=== PATIENT | male | born 1965 | race Caucasian/White ===

== ENCOUNTER 2020-03-04 13:55 | Inpatient (IN) | payer MEDICAID, SELFPAY ==
[2020-03-04 13:56] VITALS: BP 158/115; PULSE 98; RESP 22; TEMP 36.3; O2SAT 100; BMI 22.7
[2020-03-04] MEDS: Phenobarbital 32.4 MG Tablet PO (14:47)
[2020-03-04 14:49] VITALS: BP 136/62; PULSE 86; RESP 22; O2SAT 100
--- NOTE | 2020-03-04 14:52 | ED.DCSUM_ITS ---
- ER Visit Summary Date of Service: 03/04/20 Chief Complaint: Alcohol detox History of Present Illness: The patient is a 55 M who presents requesting alcohol detox. Patient states he drinks approximately half a gallon of vodka per day. Patient states his last drink was approximately 3 hours ago. Patient states he has been through detox in the past and his last detox was 3 years ago. Patient denies any drug use. Patient denies any suicidal or homicidal ideations. Patient admits to nausea but denies any vomiting or diarrhea. Patient denies any seizures but admits to some chills and shaking. Physical Examination: Vital signs are stable. Patient is afebrile. Patient is in no acute distress. Oral mucosa is pink and moist. Neck is supple. Trachea is midline. There is no JVD. Heart was regular rate and rhythm. Lungs are clear and equal bilaterally. Abdomen is soft. Bowel sounds are normal. There is no tenderness. Cranial nerves II through XII are grossly intact. There are no focal motor or sensory deficits. Extremities are intact. There is no calf tenderness or edema. Test Results: CBC and comprehensive metabolic profile were obtained. Serum alcohol level was obtained. Urine tox screen was obtained. Emergency Department Course and Treatment: Patient was given oral phenobarbital here. Patient was also given a nicotine patch. Case was discussed with the hospitalist. He will admit the patient to his service. Patient understood and was agreeable with the plan. All questions were answered. Disposition: Admit to hospital Impression: 1. Alcohol dependence This note was generated with [employer] dictation software. It may contain incorrect words, spelling, and punctuation that were not noted in review of the chart prior to signing ED Disposition - Plan for ED Patient: Disposition: Acute Care Hospital [facility] Diagnosis: Alcohol dependence Referrals: NOT,DEFINED [NON-STAFF] -
[2020-03-04 15:06] LABS: Absolute Lymphocyte Count 2.23 X10^3/uL (0.83-4.51); Basophil# 0.06 X10^3/uL; Eosinophil# 0.01 X10^3/uL; Eosinophils% 0.2 % (0-5); Hematocrit 46.6 % (40-54); Hemoglobin 15.6 g/dL (13.0-16.5); Lymphocyte # 2.23 X10^3/ul (4.0); Lymphocyte % 38.5 % (19-41); Mean Corp Hgb Conc 33.5 g/dL (32-36); Mean Corpuscular Hgb 29.9 pg (27.0-32.0); Mean Corpuscular Volume 89.4 fL (80-94); Mean Platelet Vol. 9.7 fl (6.2-12.0); Monocyte# 0.48 X10^3/uL; Monocyte% 8.3 % (0-10); NRBC Flagged by Analyzer 0 % (0-5); Neutrophil % 51.8 % (47-70); Platelet Count 233 K/mm3 (150-450); RBC Distribution Width CV 14.1 % (11.6-14.6); RBC Distribution Width SD 45.9 fl (35.1-43.9); Red Blood Count 5.21 M/mm3 (4.6-6.2); White Blood Count 5.8 K/mm3 (4.4-11.0)
[2020-03-04 15:08] LABS: Amphetamine Urine VISTA NEGATIVE (<1000 ng/mL); Barbiturate Urine VISTA NEGATIVE (< 200 ng/mL); Benzodiazepine Urine VISTA NEGATIVE (< 200 ng/mL); Cocaine Urine VISTA NEGATIVE (< 300 ng/mL); Ecstacy Urine VISTA NEGATIVE (< 500 ng/mL); Methadone Urine VISTA NEGATIVE (< 300 ng/mL); PCP Urine VISTA NEGATIVE (< 25 ng/mL); THC Urine VISTA NEGATIVE (< 50 ng/mL); Vista UDS pH Range 5
[2020-03-04 15:17] LABS: International Normalized Ratio 0.9; Prothrombin Time (Protime)PT. 11.5 SECONDS (11.7-14.9)
[2020-03-04 15:21] LABS: ALB/GLOB Ratio 1.2 RATIO (0.9-2.4); AST(SGOT) 51 U/L (15-37); Alanine Aminotransfer ALT/SGPT 91 U/L (16-61); Albumin, Serum 4.4 g/dL (3.2-5.0); Alkaline Phosphatase 105 U/L (45-117); Anion Gap 19 (5-15); BUN 16 mg/dL (7-18); BUN/Creat Ratio 16.3 RATIO (10-20); Calcium,Total 9.1 mg/dL (8.5-10.1); Chloride 101 mmol/L (98-107); Creatinine, Serum 0.98 mg/dL (0.70-1.30); EST Glomerular Filtration Rate 84 mL/min (>60); Est Glom Filt Rate - Afr Amer 102 mL/min (>60); Estimated Creatinine Clearance 80.16 ml/min; Globulin 3.8 g/dL (2.2-4.2); Glucose 72 mg/dL (74-106); Lipase 95 U/L (73-393); Potassium 3.9 mmol/L (3.5-5.1); Protein, Total 8.2 g/dL (6.4-8.2); Sodium Level 138 mmol/L (136-145)
[2020-03-04 15:25] LABS: Lactic Acid 7.1 mmol/L (0.4-1.9)
[2020-03-04] MEDS: 0.9% Normal Saline 1,000 ML 1000 ML IV (15:48)
[2020-03-04 15:49] VITALS: BP 130/81; PULSE 87; RESP 17; TEMP 36.6; O2SAT 96
[2020-03-04 16:12] VITALS: BMI 22.7
[2020-03-04 16:14] VITALS: BP 134/87; PULSE 93; RESP 18; TEMP 36.8; O2SAT 100
[2020-03-04] MEDS: Phenobarbital 32.4 MG Tablet 64.8 MG PO ×2 (17:15→21:53)
[2020-03-04] MEDS: Ondansetron 8 MG Tablet PO (17:53)
--- NOTE | 2020-03-04 18:38 | HP.PCM_ITS ---
History of Present Illness Date of Admission: 03/04/20 Chief Complaint: Alcohol detox The patient is a 55 year old M as below who presents requesting alcohol detox. He drinks approximately half a gallon of vodka per day and his last drink was about 3 hours prior. He has gone through detox before approximately 3 years ago and denies any other type of drug use. He does have some nausea and when he arrived to the floor he started having significant emesis. He does acknowledge anxiety and he does not take anything for it. When he presents to the ER he is a lactic acid of 7.1 and was given IV fluids. He does not have any signs of infection on his lab work however he is extremely acidotic secondary to the lactic acidosis Past Medical History Allergies Penicillins Allergy (Verified 03/04/20 14:25) Anaphylaxis Home Medications: Ambulatory Orders Medication Instructions Recorded NK 03/04/20 Surgical History: no surgical history Smoking Status: Current every day smoker Tobacco Use: Cigars Alcohol: Heavy Drugs: None - *Family History Maternal History Items: Stroke Paternal History Items: No pertinent history Review of Systems Constitutional: Denies: Chills, Fever, Weight Change HEENT: Denies: Head Aches, Sinus Congestion, Sinus Drainage Cardiovascular: Reports: Chest Pressure. Denies: Chest Pain, Palpitations Respiratory: Denies: Cough, Shortness of breath at rest, Sputum production Gastrointestinal: Reports: Nausea, Vomiting. Denies: Abdominal Pain Genitourinary: Denies: Dysuria Musculoskeletal: Denies: Joint Pain, Joint Tenderness Skin: Denies: Rash, Wounds Neurological: Denies: Numbness, Tingling, Focal weakness Psychiatric: Reports: Anxiety. Denies: Depression Hematologic/ Lymphatic: Denies: Easy Bruising, Easy Bleeding VTE Information - Inpt Only VTE Present on Admission: No Patient Problems: Active and Suspected Problems Alcohol dependence (Acute) - Physical Exam Vitals/I&O's: Vital Signs Temp Pulse Resp BP Pulse Ox 98.3 F 93 18 134/87 H 100 03/04/20 16:14 03/04/20 16:14 03/04/20 16:14 03/04/20 16:14 03/04/20 16:14 Oxygen Delivery Method Room Air Weight: 145 lb Body Mass Index (BMI) 22.7 Intake and Output for Last 24 Hours 03/02/20 03/03/20 03/04/20 23:59 23:59 23:59 Intake Total 1420 / 1420 Output Total 300 / 300 Balance 1120 / 1120 General: Alert, Oriented x3, Cooperative, - - Appears uncomfortable HEENT: Atraumatic, PERRLA, EOMI, Normocephalic Oral: Dry Mucosa Neck: Supple, No JVD Lungs: Clear to auscultation, Normal air movement, No rhonchi, No wheeze, No rales Cardiovascular: Regular rate, Regular Rhythm, Normal S1, Normal S2, No murmurs Abdomen: Soft, Non Tender, Non-Distended, No Hepato-splenomegaly Extremities: No edema, Capillary Refill Less than 3 Seconds Skin: No rashes, No breakdown Neurological: Neuro grossly intact, Sensory exam intact to light touch and pain Psych/Mental Status: Anxious, Restless Laboratory Results 03/04/20 14:35: Urine Opiates Screen NEGATIVE, Urine Methadone Screen NEGATIVE, Ur Barbiturates Screen NEGATIVE, Ur Phencyclidine Scrn NEGATIVE, Ur Amphetamines Screen NEGATIVE, U Methamphetamin-MDMA NEGATIVE, U Benzodiazepines Scrn NEGATIVE, Urine Cocaine Screen NEGATIVE, U Cannabinoids Screen NEGATIVE, Ur Drug Screen Comment 03/04/20 14:50: WBC 5.8, RBC 5.21, Hgb 15.6, Hct 46.6, MCV 89.4, MCH 29.9, MCHC 33.5, RDW Std Deviation 45.9 H, RDW Coeff of Елена 14.1, Plt Count 233, MPV 9.7, Immature Gran % (Auto) 0.200, Neut % (Auto) 51.8, Lymph % (Auto) 38.5, [place] % (Auto) 8.3, Eos % (Auto) 0.2, Baso % (Auto) 1.0, Absolute Neuts (auto) 3.0, Absolute Lymphs (auto) 2.23, Nucleated RBC % 0 03/04/20 14:50: PT 11.5 L, INR 0.9 03/04/20 14:50: Sodium 138, Potassium 3.9, Chloride 101, Carbon Dioxide 18.0 L, Anion Gap 19 H, BUN 16, Creatinine 0.98, Estim Creat Clear Calc 80.16, Est GFR (MDRD) Af Amer 102, Est GFR (MDRD) Non-Af 84, BUN/Creatinine Ratio 16.3, Glucose 72 L, Calcium 9.1, Total Bilirubin 0.70, AST 51 H, ALT 91 H, Alkaline Phosphatase 105, Total Protein 8.2, Albumin 4.4, Globulin 3.8, Albumin/Globulin Ratio 1.2, Lipase 95 03/04/20 14:50: Ethyl Alcohol 258.0 03/04/20 14:50: Lactic Acid 7.1 H* Current Medications Dicyclomine HCl (Dicyclomine 10 Mg Capsule) 20 mg PO Q6H PRN PRN PRN Reason: abdominal discomfort Folic Acid (Folic Acid 1 Mg Tablet) 1 mg PO DAILY@0800 AARTI Gabapentin (Gabapentin 300 Mg Capsule) 300 mg PO Q8H PRN PRN PRN Reason: moderate to severe anxiety Hydroxyzine Pamoate (Hydroxyzine Theresa 25 Mg Capsule) 50 mg PO Q4H PRN PRN PRN Reason: mild anxiety Sodium Chloride () 1,000 mls @ 100 mls/hr IV .Q10H AARTI Stop: 03/05/20 04:34 Loperamide HCl (Loperamide 2 Mg Capsule) 2 mg PO Q4H PRN PRN PRN Reason: LOOSE STOOLS Nicotine (Nicotine 21 Mg Patch) 21 mg TRANSDERM. DAILY AARTI Ondansetron HCl (Ondansetron 8 Mg Tablet) 8 mg PO Q8H PRN PRN PRN Reason: NAUSEA Last Admin: 03/04/20 17:53 Dose: 8 mg Documented by: Ondansetron HCl (Ondansetron 4 Mg/2 Ml Vial) 4 mg IV X1 ONE Stop: 03/04/20 18:33 Phenobarbital (Phenobarbital 32.4 Mg Tablet) 97.2 mg PO Q4H AARTI; Taper Stop: 03/09/20 00:59 Last Admin: 03/04/20 17:15 Dose: 97.2 mg Documented by: Sodium Chloride (0.9% Saline Lock 10 Ml Syringe) 10 - 40 ml IV UD PRN PRN Reason: SALINE FLUSH Thiamine HCl (Thiamine Hydrochloride 100 Mg Tablet) 100 mg PO DAILYCM AARTI Trazodone HCl (Trazodone 100 Mg Tablet) 100 mg PO QHS PRN PRN Reason: INSOMNIA Assessment/Plan All Active Problems Alcohol dependence (Acute) 1. Acute alcohol intoxication requesting detox/lactic acidosis -We will continue with phenobarbital taper -Unsure as to the origin was lactic acidosis other than significant alcohol intoxication -Continue with aggressive IV fluid rehydration and will recheck lactic acid 2. Tobacco abuse -Would like a nicotine patch DVT: Ambulation Inpatient E&M: 38700 Init Hosp L2
[2020-03-04 18:56] LABS: Reflex Lactate? Y
[2020-03-04] MEDS: 0.9% Saline Lock 10 ML Syringe IV (18:58)
[2020-03-04] MEDS: Ondansetron 4 MG/2 ML Vial IV (18:58)
[2020-03-04] MEDS: 0.9% Normal Saline 1,000 ML 999 ML IV (18:58)
[2020-03-04] MEDS: 0.9% Normal Saline 1,000 ML 150 ML IV (20:09)
[2020-03-04 20:45] LABS: Lactic Acid 3.7 mmol/L (0.4-1.9)
[2020-03-04 21:03] VITALS: BP 143/79; PULSE 105; RESP 20; TEMP 37.1; O2SAT 97
[2020-03-04] MEDS: proCHLORPERazine 10 MG/2 ML Vial 5 MG IV (21:05)
[2020-03-04] MEDS: traZODone 100 MG Tablet PO (21:53)
[2020-03-04] MEDS: Gabapentin 300 MG Capsule PO (21:53)
[2020-03-04] MEDS: Dicyclomine 10 MG Capsule 20 MG PO (21:54)
[2020-03-04 22:49] LABS: Phosphorus 3.9 mg/dL (2.5-4.9)
[2020-03-05 01:17] VITALS: BP 110/63; PULSE 89; RESP 16; TEMP 36.7; O2SAT 93
[2020-03-05] MEDS: Phenobarbital 32.4 MG Tablet 64.8 MG PO ×6 (01:19→20:22)
[2020-03-05 01:42] LABS: Lactic Acid 0.6 mmol/L (0.4-1.9)
[2020-03-05] MEDS: 0.9% Normal Saline 1,000 ML 150 ML IV ×2 (02:41→09:23)
[2020-03-05 05:09] VITALS: BP 117/70; PULSE 85; RESP 16; TEMP 36.9; O2SAT 94
[2020-03-05 07:54] VITALS: BP 120/57; PULSE 106; RESP 18; TEMP 36.7; O2SAT 95
[2020-03-05] MEDS: Folic Acid 1 MG Tablet PO (08:00)
[2020-03-05] MEDS: Thiamine Hydrochloride 100 MG Tablet PO (08:00)
--- NOTE | 2020-03-05 10:01 | PCM.PN.HOSP ---
Patient Problems: Active and Suspected Problems Alcohol dependence (Acute) Reason for Visit: Follow-up on acute alcohol withdrawal/lactic acidosis Subjective: Patient was seen and examined. No acute events overnight. Patient has some mild tremors in the hands. CIWA this morning is 4 Objective: Physical exam: General: Alert, Oriented x3, Cooperative HEENT: Atraumatic, PERRLA, EOMI, Normocephalic Oral: Dry Mucosa Neck: Supple, No JVD Lungs: Clear to auscultation, Normal air movement, No rhonchi, No wheeze, No rales Cardiovascular: Regular rate, Regular Rhythm, Normal S1, Normal S2, No murmurs Abdomen: Soft, Non Tender, Non-Distended, No Hepato-splenomegaly Extremities: No edema, Capillary Refill Less than 3 Seconds Skin: No rashes, No breakdown Neurological: Neuro grossly intact, Sensory exam intact to light touch and pain Psych/Mental Status: Anxious, Restless Vitals/I&O's: Vital Signs Temp Pulse Resp BP Pulse Ox 98.0 F 106 H 18 120/57 L 95 03/05/20 07:54 03/05/20 07:54 03/05/20 07:54 03/05/20 07:54 03/05/20 07:54 Oxygen Delivery Method Room Air Weight: 65.771 kg Body Mass Index (BMI) 22.7 Intake and Output for Last 24 Hours 03/03/20 03/04/20 03/05/20 23:59 23:59 23:59 Intake Total 2660 / 2660 2217.5 / 2217.5 Output Total 500 / 500 Balance 2160 / 2160 2217.5 / 2217.5 Laboratory Results 03/04/20 14:35: Urine Opiates Screen NEGATIVE, Urine Methadone Screen NEGATIVE, Ur Barbiturates Screen NEGATIVE, Ur Phencyclidine Scrn NEGATIVE, Ur Amphetamines Screen NEGATIVE, U Methamphetamin-MDMA NEGATIVE, U Benzodiazepines Scrn NEGATIVE, Urine Cocaine Screen NEGATIVE, U Cannabinoids Screen NEGATIVE, Ur Drug Screen Comment 03/04/20 14:50: WBC 5.8, RBC 5.21, Hgb 15.6, Hct 46.6, MCV 89.4, MCH 29.9, MCHC 33.5, RDW Std Deviation 45.9 H, RDW Coeff of Елена 14.1, Plt Count 233, MPV 9.7, Immature Gran % (Auto) 0.200, Neut % (Auto) 51.8, Lymph % (Auto) 38.5, [place] % (Auto) 8.3, Eos % (Auto) 0.2, Baso % (Auto) 1.0, Absolute Neuts (auto) 3.0, Absolute Lymphs (auto) 2.23, Nucleated RBC % 0 03/04/20 14:50: PT 11.5 L, INR 0.9 03/04/20 14:50: Sodium 138, Potassium 3.9, Chloride 101, Carbon Dioxide 18.0 L, Anion Gap 19 H, BUN 16, Creatinine 0.98, Estim Creat Clear Calc 80.16, Est GFR (MDRD) Af Amer 102, Est GFR (MDRD) Non-Af 84, BUN/Creatinine Ratio 16.3, Glucose 72 L, Calcium 9.1, Total Bilirubin 0.70, AST 51 H, ALT 91 H, Alkaline Phosphatase 105, Total Protein 8.2, Albumin 4.4, Globulin 3.8, Albumin/Globulin Ratio 1.2, Lipase 95 03/04/20 14:50: Ethyl Alcohol 258.0 03/04/20 14:50: Lactic Acid 7.1 H* 03/04/20 14:50: Phosphorus 3.9, Magnesium 2.0 03/04/20 20:12: Lactic Acid 3.7 H* 03/05/20 01:10: Lactic Acid 0.6 Current Medications Dicyclomine HCl (Dicyclomine 10 Mg Capsule) 20 mg PO Q6H PRN PRN PRN Reason: abdominal discomfort Last Admin: 03/04/20 21:54 Dose: 20 mg Documented by: Folic Acid (Folic Acid 1 Mg Tablet) 1 mg PO DAILY@0800 [facility] Last Admin: 03/05/20 08:00 Dose: 1 mg Documented by: Gabapentin (Gabapentin 300 Mg Capsule) 300 mg PO Q8H PRN PRN PRN Reason: moderate to severe anxiety Last Admin: 03/04/20 21:53 Dose: 300 mg Documented by: Hydroxyzine Pamoate (Hydroxyzine Theresa 25 Mg Capsule) 50 mg PO Q4H PRN PRN PRN Reason: mild anxiety Sodium Chloride () 1,000 mls @ 150 mls/hr IV .Q6H40M [facility] Last Admin: 03/05/20 09:23 Dose: 150 mls/hr Documented by: Loperamide HCl (Loperamide 2 Mg Capsule) 2 mg PO Q4H PRN PRN PRN Reason: LOOSE STOOLS Nicotine (Nicotine 21 Mg Patch) 21 mg TRANSDERM. DAILY [facility] Last Admin: 03/05/20 08:00 Dose: 21 mg Documented by: Ondansetron HCl (Ondansetron 8 Mg Tablet) 8 mg PO Q8H PRN PRN PRN Reason: NAUSEA Last Admin: 03/04/20 17:53 Dose: 8 mg Documented by: Phenobarbital (Phenobarbital 32.4 Mg Tablet) 97.2 mg PO Q4H [facility]; Taper Stop: 03/09/20 00:59 Last Admin: 03/05/20 08:03 Dose: 97.2 mg Documented by: Prochlorperazine Edisylate (Prochlorperazine 10 Mg/2 Ml Vial) 5 mg IV Q6H PRN PRN PRN Reason: NAUSEA/VOMITING Last Admin: 03/04/20 21:05 Dose: 5 mg Documented by: Sodium Chloride (0.9% Saline Lock 10 Ml Syringe) 10 - 40 ml IV UD PRN PRN Reason: SALINE FLUSH Last Admin: 03/04/20 18:58 Dose: 10 ml Documented by: Thiamine HCl ([facility] Hydro[facility]ide 100 Mg Tablet) [facility] Last Admin: 03/05/20 08:00 Dose: 100 mg Documented by: Trazodone HCl (Trazodone 100 Mg Tablet) 100 mg PO QHS PRN PRN Reason: INSOMNIA Last Admin: 03/04/20 21:53 Dose: 100 mg Documented by: STROKE Vital Signs/Narrative: Vital Signs Temp Pulse Resp BP Pulse Ox 03/05/20 07:54 98.0 F 106 H 18 120/57 L 95 Medical Necessity - Tobacco Use Smoking Status: Current every day smoker Tobacco Use: Cigars Assessment/Plan All Active Problems Alcohol dependence (Acute) 1. Acute alcohol withdrawal, improving, CIWA this morning is 4 Continue on alcohol withdrawal protocol with phenobarbital 2. Elevated lactic acidosis, likely related to dehydration Admitting lactic acid was 7.1, last lactic acid level was 0.6 Patient is on IV fluids, will discontinue 3. DVT PPx- early ambulation Inpatient E&M: 78946 Subs Hosp L2
--- NOTE | 2020-03-05 10:37 | ADDICTION ---
This designer/writer met with patient, in his room, to conduct ASAM, MSE and AUDIT assessments and to plan for discharge. Patient was alert and oriented x4 and participated appropriately. He reported mild-moderate withdrawal symptoms to be addressed by physician. He completed required assessments and was willing to collaborate with this designer/writer to plan for d/c. He is scheduled to meet with [facility] in [place], [place] on 03/12/2020 for assessment and treatment. He reported no need for transportation assistance upon d/c from [facility]. patient requested information re: PCPs in the [place]- this designer/writer provided these resources to patient. This designer/writer will place completed documents in patients chart and will fax to [facility] upon completion.
--- NOTE | 2020-03-05 12:30 | CASEMGMT ---
Social Work Note Pt is listed as being Homeless and self-pay. SW in to speak with pt. SW introduced self and role at [facility]. Pt is alert and orientated x3. Pt confirms that he is homeless, has been staying in a motel. Pt states that his parents recently sold their house. Pt states he could ask his friend Susana to let him stay there. Pt also confirms he is self-pay, states never applied for Medicaid. SW provided pt with self-pay resources including Medicaid application, [employer], [employer] application, [employer], RX assistance including [employer], and [employer]. SW also provided pt with homeless shelters and [facility] information. Pt confirms he has an appointment with [facility]. Pt denied additional needs or concerns at this time. Nicole Black MSW, ACCOUNT DEVELOPMENT ASSOCIATE
[2020-03-05 14:27] VITALS: BP 123/72; PULSE 89; RESP 18; TEMP 36.7; O2SAT 98
[2020-03-05 20:20] VITALS: BP 108/74; PULSE 74; RESP 18; TEMP 36.8; O2SAT 97
[2020-03-06] MEDS: Phenobarbital 32.4 MG Tablet 64.8 MG PO ×6 (00:54→20:52)
[2020-03-06 02:50] VITALS: BP 97/69; PULSE 68; RESP 16; TEMP 36.6; O2SAT 99
[2020-03-06 05:37] LABS: Absolute Lymphocyte Count 2.18 X10^3/uL (0.83-4.51); Absolute Neutrophil Count 2.4 X10^3/uL (2.0-7.7); Basophil# 0.03 X10^3/uL; Basophil% 0.6 % (0-1); Eosinophil# 0.13 X10^3/uL; Eosinophils% 2.5 % (0-5); Hematocrit 39.6 % (40-54); Hemoglobin 13.4 g/dL (13.0-16.5); Lymphocyte # 2.18 X10^3/ul (4.0); Lymphocyte % 42.5 % (19-41); Mean Corp Hgb Conc 33.8 g/dL (32-36); Mean Corpuscular Hgb 30.2 pg (27.0-32.0); Mean Corpuscular Volume 89.4 fL (80-94); Mean Platelet Vol. 9.8 fl (6.2-12.0); Monocyte# 0.37 X10^3/uL; Monocyte% 7.2 % (0-10); NRBC Flagged by Analyzer 0 % (0-5); Neutrophil # 2.41 X10^3/uL (2.7-7.7); Platelet Count 145 K/mm3 (150-450); RBC Distribution Width CV 13.8 % (11.6-14.6); Red Blood Count 4.43 M/mm3 (4.6-6.2); White Blood Count 5.1 K/mm3 (4.4-11.0)
[2020-03-06 06:04] LABS: ALB/GLOB Ratio 1.1 RATIO (0.9-2.4); AST(SGOT) 37 U/L (15-37); Alanine Aminotransfer ALT/SGPT 59 U/L (16-61); Albumin, Serum 3.4 g/dL (3.2-5.0); Alkaline Phosphatase 81 U/L (45-117); Anion Gap 5 (5-15); BUN 11 mg/dL (7-18); BUN/Creat Ratio 15.3 RATIO (10-20); Calcium,Total 8.6 mg/dL (8.5-10.1); Chloride 103 mmol/L (98-107); Creatinine, Serum 0.72 mg/dL (0.70-1.30); EST Glomerular Filtration Rate 121 mL/min (>60); Est Glom Filt Rate - Afr Amer 146 mL/min (>60); Estimated Creatinine Clearance 109.16 ml/min; Glucose 79 mg/dL (74-106); Potassium 3.5 mmol/L (3.5-5.1); Protein, Total 6.4 g/dL (6.4-8.2); Sodium Level 134 mmol/L (136-145)
[2020-03-06] MEDS: Folic Acid 1 MG Tablet PO (09:50)
[2020-03-06] MEDS: Thiamine Hydrochloride 100 MG Tablet PO (09:50)
[2020-03-06 10:08] VITALS: BP 110/68; PULSE 85; RESP 16; TEMP 36.8; O2SAT 97
[2020-03-06] MEDS: Ibuprofen 600 MG Tablet PO (12:57)
[2020-03-06 13:00] VITALS: BP 127/81; PULSE 81; RESP 18; TEMP 36.6; O2SAT 97
--- NOTE | 2020-03-06 14:23 | PN_ITS ---
Patient Problems: Active and Suspected Problems Alcohol dependence (Acute) Reason for Visit: Follow-up on acute alcohol withdrawal/lactic acidosis Subjective: Patient was seen and examined. No acute event overnight. Denied any new complaint. He feels much improved. Objective: Physical exam: General: Alert, Oriented x3, Cooperative HEENT: Atraumatic, PERRLA, EOMI, Normocephalic Oral: Dry Mucosa Neck: Supple, No JVD Lungs: Clear to auscultation, Normal air movement, No rhonchi, No wheeze, No rales Cardiovascular: Regular rate, Regular Rhythm, Normal S1, Normal S2, No murmurs Abdomen: Soft, Non Tender, Non-Distended, No Hepato-splenomegaly Extremities: No edema, Capillary Refill Less than 3 Seconds Skin: No rashes, No breakdown Neurological: Neuro grossly intact, Sensory exam intact to light touch and pain Psych/Mental Status: Anxious, Restless Vitals/I&O's: Vital Signs Temp Pulse Resp BP Pulse Ox 97.9 F 81 18 127/81 H 97 03/06/20 13:00 03/06/20 13:00 03/06/20 13:00 03/06/20 13:00 03/06/20 13:00 Oxygen Delivery Method Room Air Weight: 65.8 kg Body Mass Index (BMI) 22.7 Intake and Output for Last 24 Hours 03/04/20 03/05/20 03/06/20 23:59 23:59 23:59 Intake Total 2660 / 2660 4061.25 / 4661.25 1400 / 1400 Output Total 500 / 500 Balance 2160 / 2160 4061.25 / 4661.25 1400 / 1400 Laboratory Results 03/06/20 05:10: WBC 5.1, RBC 4.43 L, Hgb 13.4, Hct 39.6 L, MCV 89.4, MCH 30.2, MCHC 33.8, RDW Std Deviation 45.0 H, RDW Coeff of Елена 13.8, Plt Count 145 L, MPV 9.8, Immature Gran % (Auto) 0.200, Neut % (Auto) 47.0, Lymph % (Auto) 42.5 H, [place] % (Auto) 7.2, Eos % (Auto) 2.5, Baso % (Auto) 0.6, Absolute Neuts (auto) 2.4, Absolute Lymphs (auto) 2.18, Nucleated RBC % 0 03/06/20 05:10: Sodium 134 L, Potassium 3.5, Chloride 103, Carbon Dioxide 26.0, Anion Gap 5, BUN 11, Creatinine 0.72, Estim Creat Clear Calc 109.16, Est GFR (MDRD) Af Amer 146, Est GFR (MDRD) Non-Af 121, BUN/Creatinine Ratio 15.3, Glucose 79, Calcium 8.6, Total Bilirubin 1.20 H, AST 37, ALT 59, Alkaline Phosphatase 81, Total Protein 6.4, Albumin 3.4, Globulin 3.0, Albumin/Globulin Ratio 1.1 Current Medications Dicyclomine HCl (Dicyclomine 10 Mg Capsule) 20 mg PO Q6H PRN PRN PRN Reason: abdominal discomfort Last Admin: 03/04/20 21:54 Dose: 20 mg Documented by: Folic Acid (Folic Acid 1 Mg Tablet) 1 mg PO DAILY@0800 [facility] Last Admin: 03/06/20 09:50 Dose: 1 mg Documented by: Gabapentin (Gabapentin 300 Mg Capsule) 300 mg PO Q8H PRN PRN PRN Reason: moderate to severe anxiety Last Admin: 03/04/20 21:53 Dose: 300 mg Documented by: Hydroxyzine Pamoate (Hydroxyzine Theresa 25 Mg Capsule) 50 mg PO Q4H PRN PRN PRN Reason: mild anxiety Ibuprofen (Ibuprofen 600 Mg Tablet) 600 mg PO Q6H PRN PRN PRN Reason: Pain 1-10 or Fever Last Admin: 03/06/20 12:57 Dose: 600 mg Documented by: Loperamide HCl (Loperamide 2 Mg Capsule) 2 mg PO Q4H PRN PRN PRN Reason: LOOSE STOOLS Nicotine (Nicotine 21 Mg Patch) 21 mg TRANSDERM. DAILY [facility] Last Admin: 03/06/20 09:50 Dose: 21 mg Documented by: Ondansetron HCl (Ondansetron 8 Mg Tablet) 8 mg PO Q8H PRN PRN PRN Reason: NAUSEA Last Admin: 03/04/20 17:53 Dose: 8 mg Documented by: Phenobarbital (Phenobarbital 32.4 Mg Tablet) 64.8 mg PO Q4H AARTI; Taper Stop: 03/09/20 00:59 Last Admin: 03/06/20 12:51 Dose: 64.8 mg Documented by: Prochlorperazine Edisylate (Prochlorperazine 10 Mg/2 Ml Vial) 5 mg IV Q6H PRN PRN PRN Reason: NAUSEA/VOMITING Last Admin: 03/04/20 21:05 Dose: 5 mg Documented by: Sodium Chloride (0.9% Saline Lock 10 Ml Syringe) 10 - 40 ml IV UD PRN PRN Reason: SALINE FLUSH Last Admin: 03/04/20 18:58 Dose: 10 ml Documented by: Thiamine HCl (Thiamine Hydrochloride 100 Mg Tablet) 100 mg PO DAILYCM [facility]I Last Admin: 03/06/20 09:50 Dose: 100 mg Documented by: Trazodone HCl (Trazodone 100 Mg Tablet) 100 mg PO QHS PRN PRN Reason: INSOMNIA Last Admin: 03/04/20 21:53 Dose: 100 mg Documented by: STROKE Vital Signs/Narrative: Vital Signs Temp Pulse Resp BP Pulse Ox 03/06/20 13:00 97.9 F 81 18 127/81 H 97 Medical Necessity - Tobacco Use Smoking Status: Current every day smoker Tobacco Use: Cigars Assessment/Plan All Active Problems Alcohol dependence (Acute) 1. Acute alcohol withdrawal, improving, CIWA this morning is 4 Continue on alcohol withdrawal protocol with phenobarbital 2. Elevated lactic acidosis, likely related to dehydration, resolved Admitting lactic acid was 7.1, last lactic acid level was 0.6 3. DVT PPx- early ambulation Inpatient E&M: 73717 Subs Hosp L2
[2020-03-06 18:00] VITALS: BP 148/64; PULSE 74; RESP 18; TEMP 36.6; O2SAT 97
[2020-03-07] VITALS: BP 128/91; PULSE 78; RESP 16; TEMP 36.9; O2SAT 100
[2020-03-07] MEDS: Phenobarbital 32.4 MG Tablet 64.8 MG PO ×2 (00:46→06:08)
[2020-03-07 06:00] VITALS: BP 114/76; PULSE 77; RESP 16; TEMP 36.6; O2SAT 100
--- NOTE | 2020-03-07 08:41 | PCM.DC ---
- Discharge Diagnoses Current Active Problems: Current Active and Chronic Problems Alcohol dependence (Acute) Reason(s) for Visit for Discharge Instructions: Acute alcohol withdrawal You will use the following diet at home:: Regular Your food should be the consistency of: Regular Your liquids should be the consistency of: Regular/Thin Discharge Activity: Return to Normal Activity Additional Instructions: You are strongly advised to avoid alcohol or use of any illicit drug. Avoid smoking. Follow-up with your outpatient rehab program as scheduled. Allergies/Adverse Reactions: Allergies Penicillins Allergy (Verified 03/04/20 14:25) Anaphylaxis Medications to take at Discharge Folic Acid 1 mg PO DAILY@0800 30 Days #30 tab 03/07/20 Nicotine [Nicoderm Cq] 21 mg TRANSDERM. DAILY 30 Days #30 patch 03/07/20 Thiamine Hydrochloride [Vitamin B1] 100 mg PO DAILYCM 30 Days #30 tab 03/07/20 The following prescriptions were given: Folic Acid 1 mg PO DAILY@0800 30 Days #30 tab Transmission Status: Received by [facility] Nicotine [Nicoderm Cq] 21 mg TRANSDERM. DAILY 30 Days #30 patch Transmission Status: Received by [facility] Thiamine Hydrochloride [Vitamin B1] 100 mg PO DAILYCM 30 Days #30 tab Transmission Status: Received by [facility] Primary Care Physician: NOT,DEFINED [NON-STAFF] - Please follow up with your Primary Care Physician in: within 1-2 weeks Test Results: Test results from this visit will be discussed in further detail at your follow-up appointment, if applicable. Proposed Discharge Date: 03/07/20
--- NOTE | 2020-03-07 08:44 | PCM.DC.SUM ---
Discharge Date and Diagnosis - Problem List Patient Problems: Active and Suspected Problems Alcohol dependence (Acute) Date of Admission: 03/04/20 Date of Discharge: 03/07/20 - Primary Discharge Diagnosis Acute Problems: Active Problems Acute alcohol withdrawal Elevated lactic acidosis Nicotine dependence Hospital Course and Treatment Operations: None Procedures: None Summary of Care Provided: The patient is a 55 year old M with past medical history of alcohol use disorder who admits to drinking half a gallon of vodka every day. Patient comes in for medical stabilization from acute alcohol withdrawal. His last drink was 3 hours prior to admission. On admission, he was found to have a lactic acid level of 7.1 that improved with IV fluids. He was managed successfully on the phenobarbital alcohol withdrawal protocol. He continued to improve. Patient was seen by the community outpatient behavioral health team. He will follow-up with 180 on discharge. He was strongly advised to quit drinking alcohol and smoking. Patient Problems: Active and Suspected Problems Alcohol dependence (Acute) Subjective: On the day of discharge, patient was seen and examined. He denied any new complaints. Objective: Physical exam: General: Alert, Oriented x3, Cooperative HEENT: Atraumatic, PERRLA, EOMI, Normocephalic Oral: Dry Mucosa Neck: Supple, No JVD Lungs: Clear to auscultation, Normal air movement, No rhonchi, No wheeze, No rales Cardiovascular: Regular rate, Regular Rhythm, Normal S1, Normal S2, No murmurs Abdomen: Soft, Non Tender, Non-Distended, No Hepato-splenomegaly Extremities: No edema, Capillary Refill Less than 3 Seconds Skin: No rashes, No breakdown Neurological: Neuro grossly intact, Sensory exam intact to light touch and pain Psych/Mental Status: Anxious, Restless - Physical Exam Vitals/I&O's: Vital Signs Temp Pulse Resp BP Pulse Ox 97.9 F 77 16 114/76 100 03/07/20 06:00 03/07/20 06:00 03/07/20 06:00 03/07/20 06:00 03/07/20 06:00 Oxygen Delivery Method Room Air Weight: 65.8 kg Body Mass Index (BMI) 22.7 Intake and Output for Last 24 Hours 03/05/20 03/06/20 03/07/20 23:59 23:59 23:59 Intake Total 4061.25 / 4661.25 2400 / 2800 1100 / 1100 Balance 4061.25 / 4661.25 2400 / 2800 1100 / 1100 Current Medications Dicyclomine HCl (Dicyclomine 10 Mg Capsule) 20 mg PO Q6H PRN PRN PRN Reason: abdominal discomfort Last Admin: 03/04/20 21:54 Dose: 20 mg Documented by: Folic Acid (Folic Acid 1 Mg Tablet) 1 mg PO DAILY@0800 [facility] Last Admin: 03/06/20 09:50 Dose: 1 mg Documented by: Gabapentin (Gabapentin 300 Mg Capsule) 300 mg PO Q8H PRN PRN PRN Reason: moderate to severe anxiety Last Admin: 03/04/20 21:53 Dose: 300 mg Documented by: Hydroxyzine Pamoate (Hydroxyzine Theresa 25 Mg Capsule) 50 mg PO Q4H PRN PRN PRN Reason: mild anxiety Ibuprofen (Ibuprofen 600 Mg Tablet) 600 mg PO Q6H PRN PRN PRN Reason: Pain 1-10 or Fever Last Admin: 03/06/20 12:57 Dose: 600 mg Documented by: Loperamide HCl (Loperamide 2 Mg Capsule) 2 mg PO Q4H PRN PRN PRN Reason: LOOSE STOOLS Nicotine (Nicotine 21 Mg Patch) 21 mg TRANSDERM. DAILY [facility] Last Admin: 03/06/20 09:50 Dose: 21 mg Documented by: Ondansetron HCl (Ondansetron 8 Mg Tablet) 8 mg PO Q8H PRN PRN PRN Reason: NAUSEA Last Admin: 03/04/20 17:53 Dose: 8 mg Documented by: Phenobarbital (Phenobarbital 32.4 Mg Tablet) 64.8 mg PO Q6H [facility]; Taper Stop: 03/09/20 00:59 Last Admin: 03/07/20 06:08 Dose: 64.8 mg Documented by: Prochlorperazine Edisylate (Prochlorperazine 10 Mg/2 Ml Vial) 5 mg IV Q6H PRN PRN PRN Reason: NAUSEA/VOMITING Last Admin: 03/04/20 21:05 Dose: 5 mg Documented by: Sodium Chloride (0.9% Saline Lock 10 Ml Syringe) 10 - 40 ml IV UD PRN PRN Reason: SALINE FLUSH Last Admin: 03/04/20 18:58 Dose: 10 ml Documented by: Thiamine HCl (Thiamine Hydrochloride 100 Mg Tablet) [facility] Last Admin: 03/06/20 09:50 Dose: 100 mg Documented by: Trazodone HCl (Trazodone 100 Mg Tablet) 100 mg PO QHS PRN PRN Reason: INSOMNIA Last Admin: 03/04/20 21:53 Dose: 100 mg Documented by: Discharge Diet: No Restrictions Discharge Activity: Return to Normal Activity Home Medications: Medications to take at Discharge Folic Acid 1 mg PO DAILY@0800 30 Days #30 tab 03/07/20 Nicotine [Nicoderm Cq] 21 mg TRANSDERM. DAILY 30 Days #30 patch 03/07/20 Thiamine Hydrochloride [Vitamin B1] 100 mg PO DAILYCM 30 Days #30 tab 03/07/20 Following Prescriptions Were Given to Patient: Folic Acid 1 mg PO DAILY@0800 30 Days #30 tab Transmission Status: Received by [facility] Nicotine [Nicoderm Cq] 21 mg TRANSDERM. DAILY 30 Days #30 patch Transmission Status: Received by [facility] Thiamine Hydrochloride [Vitamin B1] 100 mg PO DAILYCM 30 Days #30 tab Transmission Status: Received by [facility] Primary Care Physician: NOT,DEFINED [NON-STAFF] - Please follow up with your Primary Care Physician in: within 1-2 weeks Disposition: Home Minutes spent on discharge:: 25 Patient Condition:: Stable Medical Necessity - Tobacco Use Smoking Status: Current every day smoker Tobacco Use: Cigars Meaningful Use Info Meaningful Use Diagnoses (Choose all that apply): None applicable Inpatient E&M: 41843 Disch Hosp
--- NOTE | 2020-03-07 09:10 | NURSING ---
Patient out at desk speaking to charge nurse about leaving floor and returning. Charge nurse informed patient that he was not able to leave the floor and return as part of the care plan for his diagnosis. Patient proceeded to walk to entrance/exit doors from the unit. He initially had trouble operating the doors but realized how to open the doors to unit. This nurse asked the patient if he needed assistance. Patient stated he was just leaving the floor for a short period. This nurse attempted to explain that he was not able to leave the floor and return as part of the care plan for his diagnosis. Patient also informed that his discharge information was complete so he could be discharged from the hospital if he desired. Patient stated he wanted to return to his room after leaving the floor. This nurse again informed patient that he was not able to leave the floor and return to his room as part of the care plan for his diagnosis but that he had been discharged and was eligible to leave but he would need to take the remainder of his belongings with him if leaving the nursing unit. Patient returned to room to gather belongings, discharge instructions were provided but patient did not allow this nurse or patient's primary nurse an opportunity to review discharge instructions. Patient proceeded to elevator and left nursing unit. Security made aware of situation.
== END 2020-03-07 09:16 | disposition home or self-care (01) | DRG 897 ==
LOC: ED 15:00 → MS3 15:18
PROVIDERS: Family Medicine; Admitting Provider Family Medicine; Emergency Provider Emergency Medicine; Visit Provider Internal Medicine
DX: F10.229 Alcohol dependence with intoxication, unspecified (principal); F10.239 Alcohol dependence with withdrawal, unspecified; E87.2 Acidosis; E86.0 Dehydration; F17.290 Nicotine dependence, other tobacco product, uncomplicated
CPT/HCPCS: 36415; 80053; 80307; 80320; 83605; 83690; 83735; 84100; 85025; 85610; 97802; 99285; 99406; J7030; A4216; G0480; J2405

== ENCOUNTER 2021-01-14 18:11 | Emergency (ER) | payer MEDICAID, SELFPAY ==
[2021-01-14 18:40] VITALS: BP 121/93; PULSE 114; RESP 18; RESP 20; TEMP 36.2; O2SAT 95; BMI 21.9
--- NOTE | 2021-01-14 19:08 | CM.ED ---
SW Note Referral Source: Patient Referral Reason: Detox SW answered phone and immediately patient stated he needed help and detox from alcohol. Patient sounded very inebriated. SW asked what patient is using and he said I told you ALCOHOL. SW asked when patient last used and he said I am drinking now. SW explained that patient come could to the ED and walk in for detox. Patient said how long will I have to wait. SW explained that there are people in the waiting room and patient would need to come in and register. Patient demanded take my information now so I can be put on a list. SW explained that is not the process and this parts data writer is not registration so patient will need to come into the ED and sign in. Patient said he has no ride, but then referenced a truck. SW encouraged him to contact [facility] and then patient said transfer me there. SW explained that this parts data writer could not transfer him there. SW encouraged him to call --1 and he said I am not calling 9--1. Patient verbally abusive and aggressive during this phone interaction. SW called Yoni Tomlinson and updated her regarding this interaction. SW will remain available. Plan: Patient reports interest in detox per private detective Sonya DREW
--- NOTE | 2021-01-14 20:15 | ED.RN ---
PATIENT BROUGHT BACK TO THE ROOM PATIENT IN THE ROOM AT THIS TIME. PATIENT AT THIS TIME ADVISED IT WILL BE AWHILE FOR THE DOCTOR TO BE SEEN. PATENT UPSET WITH WAIT TIME. PATIENT NO LONGER WANTS TO WAIT HE IS TRIED OF WAITING. PATIENT ADVISED IF HE LEAVES THEN THE PROCESS STARTS ALL OVER AGAIN. PATIENT REFUSING TO WAIT AT THIS TIME. HRO MADE AWARE SINCE PATIENT IS STILL INTOXICATED. PATIENT WALKED OUT UNDER OWN FREE WILL AND SECURITY WAS WITH PATIENT AT THIS TIME
[2021-01-14 20:20] LABS: Amphetamine Urine VISTA NEGATIVE (<1000 ng/mL); Barbiturate Urine VISTA NEGATIVE (< 200 ng/mL); Benzodiazepine Urine VISTA NEGATIVE (< 200 ng/mL); Cocaine Urine VISTA NEGATIVE (< 300 ng/mL); Ecstacy Urine VISTA NEGATIVE (< 500 ng/mL); Methadone Urine VISTA NEGATIVE (< 300 ng/mL); PCP Urine VISTA NEGATIVE (< 25 ng/mL); THC Urine VISTA NEGATIVE (< 50 ng/mL); Vista UDS pH Range 6
== END 2021-01-14 20:06 | disposition left against medical advice (07) ==
LOC: ED 20:16
DX: F19.10 Other psychoactive substance abuse, uncomplicated (principal); Z53.21 Procedure and treatment not carried out due to patient leaving prior to being seen by health care provider
CPT/HCPCS: 80307

== ENCOUNTER 2021-01-14 22:08 | Emergency (ER) | payer MEDICAID, SELFPAY ==
[2021-01-14 22:10] VITALS: BP 119/85; PULSE 101; RESP 16; TEMP 36.4; O2SAT 98; BMI 20.1
--- NOTE | 2021-01-14 22:40 | ED.RN ---
PT STATES HE IS NOT GOING TO STAY AND WAIT AGAIN. STATES HE IS GOING TO GO SIT IN HIS TRUCK. EXPLAINED AGAIN THAT WE WILL NOT GO AND GET HIM AND HE WILL NEED TO START ALL OVER AGAIN IF/WHEN HE COMES BACK IN. PT WAS SITTING IN THE WAITING ROOM PRIOR TO LEAVING ASKING OTHER PT WHY THERE WERE IN THE ER. WHEN THEY WOULDN'T TELL TEM HE TOLD THEM THEY WERE RUDE AND FUCK YOU THEN. HE WAS THEN CORRECTED ON HIS MOUTH AND BEHAVIOR BY THIS NURSE. HE STARTED TO ARGUE AND WAS IMMEDIATELY STOPPED AND TOLD NO MORE. HE SAT QUIETLY FOR A FEW MINUTES.
== END 2021-01-14 22:40 | disposition left against medical advice (07) ==
LOC: ED 22:45
DX: F19.10 Other psychoactive substance abuse, uncomplicated (principal); Z53.21 Procedure and treatment not carried out due to patient leaving prior to being seen by health care provider

== ENCOUNTER 2021-01-14 23:32 | Observation (INO) | payer MEDICAID, SELFPAY ==
[2021-01-14 23:34] VITALS: BP 127/76; PULSE 95; RESP 20; TEMP 36.6; O2SAT 98; BMI 19.8
[2021-01-15] VITALS (9 sets, daily range): BP systolic 113–131; BP diastolic 66–98; PULSE 65–94; RESP 16–18; TEMP 36.4–37.1; O2SAT 93–98
--- NOTE | 2021-01-15 00:14 | EX.ED.SAOD ---
HPI History of Present Illness Chief Complaint: Substance Abuse Informant: patient Narrative Narrative: Presents for alcohol assistance. Due to busy department today, patient unable to be seen right away. He left the department twice and came back. Reports alcohol dependence for years. He drinks vodka for alcoholic choice. He states he drinks at least a gallon a day. Today however states he took 2 gallons total. Denies recreational drug use. Only medication he reports is trazodone to help him sleep. However also reports he drinks until he falls asleep. Denies suicidal homicidal ideations. He states he last received help a year ago here at this hospital. However he did not follow-up with 180. He states he has morning tremors. He denies any withdrawal seizure history in the past. Records reviewed he was seen and managed in the hospital in February 2020. He was managed well with phenobarbital at that time. He was to follow-up with 180. Prior similar symptoms: Yes PFSH PFSH Home Medications trazodone 150 mg PO QHS 01/15/21 [History Last Taken Unknown] Allergy/AdvReac Type Severity Reaction Status Date / Time Penicillins Allergy Anaphylaxis Verified 01/14/21 23:33 Surgical History no surgical history Social History Smoking Status: Current every day smoker tobacco type: cigarettes ROS ROS ED Constitutional Constitutional ED: Denies chills, fever(s) or sweats Eyes Eyes: Denies change in vision ENT ENT ED: Denies dysphagia or sore throat Cardiovascular Cardiovascular: Denies chest pain, leg edema, palpitations or racing heartbeat Respiratory/Chest Respiratory/Chest: Denies cough, dyspnea or dyspnea on exertion Gastrointestinal Gastrointestinal: Denies abdominal pain, diarrhea, nausea or vomiting Genitourinary Genitourinary ED: Denies dysuria, hematuria or urinary frequency Musculoskeletal Musculoskeletal: Denies back pain, extremity pain or neck pain Integumentary Denies rash or wounds Neurologic Neurologic: Denies headache(s), paresthesias or weakness EXAM Physical Exam Const Vital Signs: 01/14/21 23:34 01/15/21 00:49 01/15/21 00:57 Temperature 97.8 F 98.2 F 98.2 F Temperature Source Temporal Oral Oral Pulse Rate 95 93 92 Respiratory Rate 20 H 16 16 Blood Pressure 127/76 H 122/98 H 131/89 H Blood Pressure Mean 93 106 103 Blood Pressure Source Monitor Blood Pressure Position Semi-Fowlers Blood Pressure Location Right Arm Pulse Ox 98 98 97 Oxygen Delivery Method Room Air Room Air Room Air Constitutional Narrative: Mild slurring, however is able to answer questions appropriately. General Appearance ED: NAD HEENT Reports moist mucous membranes normocephalic and atraumatic Eyes PERRL, EOMs intact bilaterally and conjunctivae normal General Eye ED: Yes normal appearance of both eyes Neck no lymphadenopathy and supple General: Negative for tenderness Chest Wall Chest: Negative for tenderness Resp normal respiratory effort and normal air movement Effort and Inspection: symmetric chest movement; Negative for respiratory distress Cardio regular rate, regular rhythm and no murmurs Peripheral Pulses: pulses 2+ throughout GI normal to inspection, nondistended, normoactive bowel sounds and non-tender Palpation: Negative for guarding or rebound tenderness present Back/Spine no CVA tenderness and no thoracic nor lumbar tenderness Extremity normal to inspection General Extremety ED: Negative for edema or tenderness General Extremity: Negative for edema Neuro oriented x3 and no sensory deficits noted Sensorium / Orientation: awake and alert Skin no rashes or lesions noted and no wounds MDM MDM MDM Narrative Medical decision making narrative: Patient vital signs stable, he is answering questions appropriate clinically slight intoxication. He is requesting help. Labs were ordered with alcohol and tox screen which is pending. Plan on discussing with hospitalist service for admission. Spoke with hospitalist team for admission. Alcohol did return at 326. Basic labs are stable. Lab Data Attestation: I reviewed the patient's lab results. Labs: Laboratory Results - last 24 hr 01/15/21 01/15/21 01/15/21 00:30 00:40 00:40 WBC 6.9 RBC 5.05 Hgb 15.0 Hct 44.6 MCV 88.3 MCH 29.7 MCHC 33.6 RDW Std Deviation 47.4 H RDW Coeff of Елена 14.8 H Plt Count 193 MPV 9.6 Immature Gran % (Auto) 0.100 Neut % (Auto) 39.0 L Lymph % (Auto) 51.6 H [place] % (Auto) 6.9 Eos % (Auto) 1.4 Baso % (Auto) 1.0 Absolute Neuts (auto) 2.7 Absolute Lymphs (auto) 3.57 Nucleated RBC % 0 Sodium 140 Potassium 3.5 Chloride 107 Carbon Dioxide 26.0 Anion Gap 7 BUN 19 H Creatinine 0.88 Estim Creat Clear Calc 78.18 Est GFR (MDRD) Af Amer 116 Est GFR (MDRD) Non-Af 96 BUN/Creatinine Ratio 21.6 H Glucose 92 Calcium 8.3 L Ur Drug Screen Comment Ethyl Alcohol 01/15/21 00:40 WBC RBC Hgb Hct MCV MCH MCHC RDW Std Deviation RDW Coeff of Елена Plt Count MPV Immature Gran % (Auto) Neut % (Auto) Lymph % (Auto) [place] % (Auto) Eos % (Auto) Baso % (Auto) Absolute Neuts (auto) Absolute Lymphs (auto) Nucleated RBC % Sodium Potassium Chloride Carbon Dioxide Anion Gap BUN Creatinine Estim Creat Clear Calc Est GFR (MDRD) Af Amer Est GFR (MDRD) Non-Af BUN/Creatinine Ratio Glucose Calcium Ur Drug Screen Comment Ethyl Alcohol 326.0 H* Discharge Plan Dx/Rx/DC Orders Clinical Impression: Alcohol dependence Disposition Disposition: Acute Care Hospital [facility]
[2021-01-15 00:47] LABS: Absolute Lymphocyte Count 3.57 X10^3/uL (0.83-4.51); Absolute Neutrophil Count 2.7 X10^3/uL (2.0-7.7); Basophil# 0.07 X10^3/uL; Eosinophils% 1.4 % (0-5); Hematocrit 44.6 % (40-54); Lymphocyte # 3.57 X10^3/ul (0.83-4.51); Lymphocyte % 51.6 % (19-41); Mean Corp Hgb Conc 33.6 g/dL (32-36); Mean Corpuscular Hgb 29.7 pg (27.0-32.0); Mean Corpuscular Volume 88.3 fL (80-94); Mean Platelet Vol. 9.6 fl (6.2-12.0); Monocyte# 0.48 X10^3/uL; Monocyte% 6.9 % (0-10); NRBC Flagged by Analyzer 0 % (0-5); Neutrophil # 2.69 X10^3/uL (2.7-7.7); Platelet Count 193 K/mm3 (150-450); RBC Distribution Width CV 14.8 % (11.6-14.6); RBC Distribution Width SD 47.4 fl (35.1-43.9); Red Blood Count 5.05 M/mm3 (4.6-6.2); White Blood Count 6.9 K/mm3 (4.4-11.0)
--- NOTE | 2021-01-15 00:48 | ED.RN ---
PT RUDE, BELLIGERENT AND CURSING AT THIS RN. READ PLAN OF CARE AGREEMENT TO PT INCLUDING #10. PT SIGNED, VOICES UNDERSTANDING.
[2021-01-15 01:02] LABS: Anion Gap 7 (5-15); BUN 19 mg/dL (7-18); BUN/Creat Ratio 21.6 RATIO (10-20); Calcium,Total 8.3 mg/dL (8.5-10.1); Chloride 107 mmol/L (98-107); Creatinine, Serum 0.88 mg/dL (0.70-1.30); EST Glomerular Filtration Rate 96 mL/min (>60); Est Glom Filt Rate - Afr Amer 116 mL/min (>60); Estimated Creatinine Clearance 78.18 ml/min; Glucose 92 mg/dL (74-106); Potassium 3.5 mmol/L (3.5-5.1); Sodium Level 140 mmol/L (136-145)
--- NOTE | 2021-01-15 01:07 | HP.PCM_ITS ---
Documented by User: LUIS Lira 01/15/21 01:19 HPI - General General Date of Admission: 01/15/21 Date of Service: 01/15/21 Chief Complaint: Desire for detoxification from alcohol HPI Narrative REBECA SORTO, is a 55 M who presents with desire to detox from alcohol. Patient has been here and left multiple times throughout the day. Patient reports that he drank at least 2 pints today however he is unsure of the amount and states it could be more. Patient states that he regularly drinks half to 1 gallon of vodka daily. Upon initial evaluation patient is argumentative and rude to staff. PFSH Medical History Alcohol abuse Anxiety Depression Smoker Medical History no medical history no medical history Home Medications trazodone 150 mg PO QHS 01/15/21 [History Last Taken Unknown] Allergy/AdvReac Type Severity Reaction Status Date / Time Penicillins Allergy Anaphylaxis Verified 01/14/21 23:33 Family History unable to obtain unable to obtain Surgical History no surgical history no surgical history Social History Smoking Status: Current every day smoker tobacco type: cigarettes ROS Constitutional Constitutional: Denies anorexia, chills, fatigue, fever(s), malaise or weakness Cardiovascular Cardiovascular: Denies chest pain, edema or palpitations Respiratory/Chest Respiratory/Chest: Denies cough, shortness of breath at rest or shortness of breath with exertion Gastrointestinal Gastrointestinal: Denies abdominal pain, constipation, diarrhea, nausea or vomiting Genitourinary Genitourinary: Denies dysuria Musculoskeletal Musculoskeletal: Denies back pain, extremity pain, joint pain or joint stiffness Integumentary Integumentary: Denies dry skin Neurologic Neurologic: Denies abnormal gait, abnormal speech, confusion or dizziness Psychiatric Psychiatric: Denies anxiety or depression Endocrine Endocrinology: Denies change in body appearance Hematologic/Lymphatic Hematologic/Lymphatic: Denies anemia, easy bleeding or easy bruising Vital Signs Vital Signs Vital Signs: 01/14/21 23:34 01/15/21 00:49 01/15/21 00:57 Temperature 97.8 F 98.2 F 98.2 F Temperature Source Temporal Oral Oral Pulse Rate 95 93 92 Respiratory Rate 20 H 16 16 Blood Pressure 127/76 H 122/98 H 131/89 H Blood Pressure Mean 93 106 103 Blood Pressure Source Monitor Blood Pressure Position Semi-Fowlers Blood Pressure Location Right Arm Pulse Ox 98 98 97 Oxygen Delivery Method Room Air Room Air Room Air Weight Weight: 126 lb 15.78 oz Body Mass Index (BMI) 19.8 Physical Exam Const alert and no apparent distress Constitutional Narrative: Patient argumentative with staff. General Appearance: odor of alcohol detected HEENT normocephalic and head/scalp atraumatic Eyes conjunctivae normal and no scleral icterus Neck supple General: trachea midline Resp normal respiratory effort, normal air movement and clear to auscultation bilaterally Cardio regular rate, regular rhythm, S1 normal heart sound, S2 normal heart sound and peripheral pulses 2+ throughout GI normal to inspection, nondistended, normoactive bowel sounds, soft to palpation and non-tender Extremity normal capillary refill and no clubbing, cyanosis or edema General Extremity: no tenderness to palpation of joints or extremities Skin General Skin Exam: no breakdown and turgor normal Lesions: no lesions Rashes: no rashes Neuro no focal motor deficits and no sensory deficits noted Speech: speech normal Motor Exam: Negative for general weakness Psych Attitude: uncooperative and agitated Activity / Motor Behavior: restless Speech: normal speech Results Lab / Micro Data Result Diagrams: 01/15/21 00:40 01/15/21 00:40 Labs: Laboratory Results - last 24 hr 01/15/21 00:30: Ur Drug Screen Comment 01/15/21 00:40: WBC 6.9, RBC 5.05, Hgb 15.0, Hct 44.6, MCV 88.3, MCH 29.7, MCHC 33.6, RDW Std Deviation 47.4 H, RDW Coeff of Елена 14.8 H, Plt Count 193, MPV 9.6, Immature Gran % (Auto) 0.100, Neut % (Auto) 39.0 L, Lymph % (Auto) 51.6 H, [place] % (Auto) 6.9, Eos % (Auto) 1.4, Baso % (Auto) 1.0, Absolute Neuts (auto) 2.7, Absolute Lymphs (auto) 3.57, Nucleated RBC % 0 01/15/21 00:40: Sodium 140, Potassium 3.5, Chloride 107, Carbon Dioxide 26.0, Anion Gap 7, BUN 19 H, Creatinine 0.88, Estim Creat Clear Calc 78.18, Est GFR (MDRD) Af Amer 116, Est GFR (MDRD) Non-Af 96, BUN/Creatinine Ratio 21.6 H, Glucose 92, Calcium 8.3 L Assessment & Plan Assessment/Plan (1) Alcohol dependence: QUALIFIERS: Complication of substance-induced condition: uncomplicated Substance use status: with intoxication Qualified Code(s): F10.220 - Alcohol dependence with intoxication, uncomplicated (2) Desire for detoxification: (3) Tobacco abuse: PLAN: 1. Desire for detoxification from alcohol -Admit to MedSurg -Phenobarbital taper ordered along with supportive medications -CIWA's per protocol -CBC and BMP ordered for a.m. -Consult case management for coordination with 180 -Vital signs per protocol 2. Tobacco abuse -Patient denies need for nicotine patch at this time -Inpatient smoking cessation DVT prophylaxis-not indicated, encourage ambulation This patient was seen by LUIS Lira under the supervision of Dr. Li. Documented by User: Dr. Garfield Li MD 01/15/21 04:57 HPI - General General Date of Admission: 01/15/21 [facility] Medical History Alcohol abuse Anxiety Depression Smoker Medical History no medical history Home Medications trazodone 150 mg PO QHS 01/15/21 [History Last Taken Unknown] Allergy/AdvReac Type Severity Reaction Status Date / Time Penicillins Allergy Anaphylaxis Verified 01/14/21 23:33 Family History unable to obtain Surgical History no surgical history Social History Smoking Status: Current every day smoker tobacco type: cigarettes Results Lab / Micro Data Result Diagrams: 01/15/21 00:40 01/15/21 00:40 Charges/Coding Addendum Addendum: Patient seen and examined and agree with above assessment and plan.
[2021-01-15 01:26] LABS: Amphetamine Urine VISTA NEGATIVE (<1000 ng/mL); Barbiturate Urine VISTA NEGATIVE (< 200 ng/mL); Benzodiazepine Urine VISTA NEGATIVE (< 200 ng/mL); Cocaine Urine VISTA NEGATIVE (< 300 ng/mL); Ecstacy Urine VISTA NEGATIVE (< 500 ng/mL); Methadone Urine VISTA NEGATIVE (< 300 ng/mL); PCP Urine VISTA NEGATIVE (< 25 ng/mL); THC Urine VISTA NEGATIVE (< 50 ng/mL); Vista UDS pH Range 5
--- NOTE | 2021-01-15 02:22 | NURSING ---
Pandemic charting in effect.
[2021-01-15] MEDS: Phenobarbital 32.4 MG Tablet PO ×6 (02:33→22:04)
[2021-01-15 05:46] LABS: Absolute Lymphocyte Count 3.32 X10^3/uL (0.83-4.51); Absolute Neutrophil Count 2.1 X10^3/uL (2.0-7.7); Basophil# 0.05 X10^3/uL; Basophil% 0.8 % (0-1); Eosinophil# 0.11 X10^3/uL; Eosinophils% 1.8 % (0-5); Hematocrit 39.2 % (40-54); Hemoglobin 13.2 g/dL (13.0-16.5); Lymphocyte # 3.32 X10^3/ul (0.83-4.51); Lymphocyte % 55.8 % (19-41); Mean Corp Hgb Conc 33.7 g/dL (32-36); Mean Corpuscular Hgb 29.1 pg (27.0-32.0); Mean Corpuscular Volume 86.3 fL (80-94); Mean Platelet Vol. 9.6 fl (6.2-12.0); Monocyte# 0.34 X10^3/uL; Monocyte% 5.7 % (0-10); NRBC Flagged by Analyzer 0 % (0-5); Neutrophil # 2.11 X10^3/uL (2.7-7.7); Neutrophil % 35.6 % (47-70); Platelet Count 167 K/mm3 (150-450); RBC Distribution Width CV 14.6 % (11.6-14.6); RBC Distribution Width SD 46.4 fl (35.1-43.9); Red Blood Count 4.54 M/mm3 (4.6-6.2)
[2021-01-15 06:00] LABS: Anion Gap 9 (5-15); BUN 18 mg/dL (7-18); BUN/Creat Ratio 24.3 RATIO (10-20); Calcium,Total 8.4 mg/dL (8.5-10.1); Chloride 108 mmol/L (98-107); Creatinine, Serum 0.74 mg/dL (0.70-1.30); EST Glomerular Filtration Rate 117 mL/min (>60); Est Glom Filt Rate - Afr Amer 141 mL/min (>60); Estimated Creatinine Clearance 91.04 ml/min; Glucose 92 mg/dL (74-106); Potassium 3.2 mmol/L (3.5-5.1); Sodium Level 141 mmol/L (136-145)
--- NOTE | 2021-01-15 10:13 | ADDICTION ---
This hand sign writer met with PT to conduct ASAM, MSE, AUDIT assessments and to plan for d/c. PT A+Ox4 and participated actively. All assessments completed, faxed to [facility] and placed in PT's chart. PT plans to f/u with [facility] for residential treatment and follow-up counseling services. Once approved, [facility] will provide transportation post d/c from [facility].
--- NOTE | 2021-01-15 10:25 | PCS.PANDOC ---
PANDEMIC DOCUMENTATION INITIATED: Date: 11/26/2020 Time: 190
[2021-01-15] MEDS: Gabapentin 300 MG Capsule PO ×2 (10:31→22:04)
[2021-01-15] MEDS: Folic Acid 1 MG Tablet PO (10:31)
[2021-01-15] MEDS: Thiamine Hydrochloride 100 MG Tablet PO (10:31)
[2021-01-15] MEDS: Acetaminophen 325 MG Tablet 650 MG PO (10:31)
[2021-01-15] MEDS: Dicyclomine 10 MG Capsule 20 MG PO ×2 (10:31→17:32)
--- NOTE | 2021-01-15 11:07 | CASEMGMT ---
Social Work Note SW received consult for Advanced Directives/POA. SW in to speak with pt. SW introduced self and role at [facility]. Pt states he has no questions regarding HCPOA/LW, denied documents at this time. SW informed pt that if would like documents later on to let staff know. Pt states understanding, denied additional needs or concerns at this time. Nicole Black VENEER GLUER, REVIEW SCHEDULING COORDINATOR
--- NOTE | 2021-01-15 12:39 | CASEMGMT ---
Social Work Note SW received call from [facility] Treatment Navigator, stating pt has been accepted to [facility] and will be transported by them around 9:00am Thursday. Nicole Black MSW, SWIMMING INSTRUCTOR
--- NOTE | 2021-01-15 14:03 | PCM.HOSP.N ---
Hospitalist Note Patient feeling better but still tremulous at this time. Patient states that he drinks 1/5 of hard alcohol daily. His disease had a history of delirium tremens. Physical exam: Patient is resting bed no acute distress and afebrile. Heart rate regular rate and rhythm plus S1-S2 with a murmurs Rubs. Lungs Are Clear to Auscultation Bilaterally. Abdomen Is Soft Nontender Nondistended Normal Bowel Sounds. Patient Does Have Some Slight Tremulousness of His Upper Extremities. Assessment and Plan 1. Acute Alcohol Withdrawal: Continue with Phenobarbital Taper. Continue with Other Agents to Help with Other Somatic Complaints Associated with His Acute Alcohol Withdrawal. Per History Patient Has a History of Delirium Tremens. Continue to Monitor for Any Worsening of Symptoms. Procedures Hospitalists Procedures: Other Procedure - See Report (Non billable rounding as pt admitted after midnight. )
[2021-01-15] MEDS: hydrOXYzine PAM 25 MG Capsule 50 MG PO (14:52)
[2021-01-16] MEDS: Phenobarbital 32.4 MG Tablet PO ×6 (02:01→23:20)
[2021-01-16 06:00] VITALS: BP 120/75; PULSE 74; RESP 16; TEMP 36.4; O2SAT 98
[2021-01-16 07:30] VITALS: O2SAT 97
[2021-01-16 09:32] VITALS: BP 116/77; PULSE 76; RESP 16; TEMP 36.9; O2SAT 98
[2021-01-16] MEDS: Folic Acid 1 MG Tablet PO (09:34)
[2021-01-16] MEDS: Thiamine Hydrochloride 100 MG Tablet PO (09:34)
--- NOTE | 2021-01-16 11:15 | CASEMGMT ---
Social Work Note SW updated by Irina treatment navigator, that [facility] will be transporting pt Thursday between 11:00am-12:00pm. SW updated physician and chestnut tanner. Nicole Black SHEET METAL FABRICATOR, PROJECT ENGINEERING MANAGER
[2021-01-16 14:04] VITALS: BP 133/90; PULSE 88; RESP 18; TEMP 37; O2SAT 99
--- NOTE | 2021-01-16 15:16 | PCM.PN.HOSP ---
Subjective Subjective Patient admitted for acute alcohol withdrawal symptoms. Patient has sickness, tremors not feeling good. Objective Data Objective Data Vital Signs: Vital Signs Temp Pulse Resp BP Pulse Ox 98.6 F 88 18 133/90 H 99 01/16/21 14:04 01/16/21 14:04 01/16/21 14:04 01/16/21 14:04 01/16/21 14:04 Oxygen Delivery Method Room Air Weight: 124 lb 5.451 oz Body Mass Index (BMI) 20.0 Lab / Micro Data Result Diagrams: 01/15/21 05:02 01/15/21 05:02 Micro: Microbiology 01/15/21 00:50 Nasal Secretion SARS-CoV-2 Antigen (Rapid) - Final Physical Exam Narrative General: Awake, oriented x3. HEENT: Atraumatic, PERRLA, EOMI, Normocephalic Oral: No Gingival or Mucosal Lesions/ Ulcerations Neck: Supple, No JVD, Negative Carotid Bruits Lungs: Air entry diminished in bilateral lung bases. No crepitation/rhonchi Cardiovascular: Regular rate, Regular Rhythm, Normal S1, Normal S2, No murmurs Abdomen: Bowel Sounds Present, Soft, Non Tender, Non-Distended : No renal angle tenderness. No suprapubic tenderness. Extremities: No edema, Capillary Refill Less than 3 Seconds Skin: No rashes, No breakdown Musculoskeletal: No Tenderness to Palpation of Joints or Extremities Neurological: Cranial nerves II-XII grossly intact, DTR 2+/4 and Symmetrical, Neuro grossly intact Psych/Mental Status: Restless and anxious. Assessment & Plan Assessment/Plan (1) Alcohol dependence: QUALIFIERS: Substance use status: with intoxication Complication of substance-induced condition: uncomplicated Qualified Code(s): F10.220 - Alcohol dependence with intoxication, uncomplicated (2) Desire for detoxification: (3) Tobacco abuse: PLAN: 1. Acute alcohol withdrawal syndrome with chronic alcohol use and dependence: Patient is being admitted MedSurg floor. On CIWA protocol. Phenobarbitone protocol along with other adjunctive medications. Patient has mild kalemia and potassium is replaced. 2. Tobacco abuse, chronic: Smoking. On nicotine patch. Now-Inpatient smoking cessation DVT prophylaxis-not indicated, encourage ambulation VT prophylaxis mild risk. Lovenox 40 g daily. Charges/Coding Visit Charges Inpatient E&M: 67328 Subs Hosp L2
[2021-01-16 16:59] LABS: Magnesium 2.3 mg/dL (1.6-2.6); Phosphorus 2.8 mg/dL (2.5-4.9)
[2021-01-16 17:36] VITALS: BP 115/82; PULSE 69; RESP 16; TEMP 37.2; O2SAT 100
[2021-01-16] MEDS: Enoxaparin 40 MG/0.4 ML Syringe SC (17:38)
[2021-01-16] MEDS: Potassium Chloride Oral Tablet 20 MEQ 40 MEQ PO ×2 (17:38→20:53)
[2021-01-16 23:17] VITALS: BP 106/94; PULSE 86; RESP 18; TEMP 37; O2SAT 100
[2021-01-16] MEDS: 0.9% Saline Lock 10 ML Syringe IV (23:23)
[2021-01-17 03:30] VITALS: BP 117/73; PULSE 56; RESP 18; TEMP 36.6; O2SAT 100
[2021-01-17] MEDS: Phenobarbital 32.4 MG Tablet PO ×5 (03:32→22:45)
[2021-01-17 06:42] LABS: Anion Gap 5 (5-15); BUN 10 mg/dL (7-18); BUN/Creat Ratio 10.8 RATIO (10-20); Calcium,Total 9.1 mg/dL (8.5-10.1); Chloride 100 mmol/L (98-107); Creatinine, Serum 0.93 mg/dL (0.70-1.30); EST Glomerular Filtration Rate 90 mL/min (>60); Est Glom Filt Rate - Afr Amer 109 mL/min (>60); Estimated Creatinine Clearance 72.44 ml/min; Glucose 82 mg/dL (74-106); Potassium 4.4 mmol/L (3.5-5.1); Sodium Level 134 mmol/L (136-145)
[2021-01-17 08:32] VITALS: BP 120/79; PULSE 66; RESP 14; TEMP 36.7; O2SAT 100
[2021-01-17] MEDS: Folic Acid 1 MG Tablet PO (08:36)
[2021-01-17] MEDS: Thiamine Hydrochloride 100 MG Tablet PO (08:36)
[2021-01-17] MEDS: Enoxaparin 40 MG/0.4 ML Syringe SC (08:36)
[2021-01-17 08:40] VITALS: O2SAT 97
--- NOTE | 2021-01-17 09:56 | ADDICTION ---
This worker met with pt this morning to discuss d/c planning.
[2021-01-17 14:36] VITALS: BP 107/75; PULSE 67; RESP 16; TEMP 36.2; O2SAT 99
--- NOTE | 2021-01-17 15:21 | PCM.PN.HOSP ---
Subjective Subjective Patient is admitted for acute alcohol withdrawal. Mild shaking and tremors Objective Data Objective Data Vital Signs: Vital Signs Temp Pulse Resp BP Pulse Ox 97.2 F L 67 16 107/75 99 01/17/21 14:36 01/17/21 14:36 01/17/21 14:36 01/17/21 14:36 01/17/21 14:36 Oxygen Delivery Method Room Air Weight: 124 lb 5.451 oz Body Mass Index (BMI) 20.0 Lab / Micro Data Result Diagrams: 01/15/21 05:02 01/17/21 05:26 Labs: Laboratory Results - last 24 hr 01/16/21 16:15: Phosphorus 2.8, Magnesium 2.3 01/17/21 05:26: Sodium 134 L, Potassium 4.4, Chloride 100, Carbon Dioxide 29.0, Anion Gap 5, BUN 10, Creatinine 0.93, Estim Creat Clear Calc 72.44, Est GFR (MDRD) Af Amer 109, Est GFR (MDRD) Non-Af 90, BUN/Creatinine Ratio 10.8, Glucose 82, Calcium 9.1 Micro: Microbiology 01/15/21 00:50 Nasal Secretion SARS-CoV-2 Antigen (Rapid) - Final Physical Exam Narrative General: Alert, awake, oriented x3. HEENT: Atraumatic, PERRLA, EOMI, Normocephalic Oral: No Gingival or Mucosal Lesions/ Ulcerations Neck: Supple, No JVD, Negative Carotid Bruits Lungs: Air entry equal in bilateral lung bases. No crepitation/rhonchi Cardiovascular: Regular rate, Regular Rhythm, Normal S1, Normal S2, No murmurs Abdomen: Bowel Sounds Present, Soft, Non Tender, Non-Distended : No renal angle tenderness. No suprapubic tenderness. Extremities: No edema, Capillary Refill Less than 3 Seconds Skin: No rashes, No breakdown Musculoskeletal: No Tenderness to Palpation of Joints or Extremities Neurological: Cranial nerves II-XII grossly intact, DTR 2+/4 and Symmetrical, Neuro grossly intact Psych/Mental Status: Appropriate. Assessment & Plan Assessment/Plan (1) Alcohol dependence: QUALIFIERS: Substance use status: with intoxication Complication of substance-induced condition: uncomplicated Qualified Code(s): F10.220 - Alcohol dependence with intoxication, uncomplicated (2) Desire for detoxification: (3) Tobacco abuse: PLAN: 1. Acute alcohol withdrawal syndrome with chronic alcohol use and dependence: Patient is being admitted MedSur floor. On CIWA protocol. Phenobarbitone protocol along with other adjunctive medications. Patient has mild kalemia and potassium is replaced. 01/17: Patient symptoms are well controlled. Plan is discharge tomorrow to inpatient alcohol rehab program. [employer] supervisor is at 11 AM tomorrow. 2. Tobacco abuse, chronic: Smoking. On nicotine patch. Now-Inpatient smoking cessation DVT prophylaxis-not indicated, encourage ambulation VT prophylaxis mild risk. Lovenox 40 g daily.
[2021-01-17] MEDS: 0.9% Saline Lock 10 ML Syringe IV (15:45)
--- NOTE | 2021-01-17 20:17 | NURSING ---
Pt asked while doing assessment why his belongings are still locked in the box? Explained to pt about contract he signed for all belongings to be locked until discharge. Pt shown contract that he signed, pt verbalized understabding, calm at this time, denies further needs.
[2021-01-17 22:40] VITALS: BP 121/87; PULSE 66; RESP 16; TEMP 37.2; O2SAT 99
[2021-01-17 23:00] VITALS: BP 121/87; PULSE 66; TEMP 37.1; O2SAT 99
[2021-01-18 04:20] VITALS: BP 111/76; PULSE 87; RESP 14; TEMP 36.7; O2SAT 99
[2021-01-18] MEDS: Phenobarbital 32.4 MG Tablet PO ×2 (04:22→09:52)
[2021-01-18 05:20] VITALS: BP 111/71; PULSE 68; O2SAT 99
[2021-01-18 07:31] VITALS: O2SAT 95
--- NOTE | 2021-01-18 09:07 | PCM.DC ---
Discharge Instructions Diet Discharge Diet: No restrictions Activity Discharge Activity: Return to Normal Activity Follow Up Care Please Follow Up With: Betzy When: today Test Results: Test results from this visit will be discussed in further detail at your follow-up appointment, if applicable. Discharge Plan Admission Admit Date/Time: 01/15/21 01:02 Primary Reason for Your Visit: alcohol withdrawal Attending Provider: Zay Barahona Primary Care Provider: Care Physician,No Primary Discharge Orders/Prescriptions Prescriptions: Continued trazodone 100 mg tablet 150 mg PO QHS RF: 0 Referrals / Follow Up: Care Physician,No Primary [Primary Care Provider] -
--- NOTE | 2021-01-18 09:08 | DS.PCM_ITS ---
Providers Date of Admission: 01/15/21 Primary Care Physician: Camryn Primary Care Phys Reason For Visit: desire for etoh detox Diagnosis Discharge Diagnosis (1) Alcohol dependence: Status: Acute Code(s): F10.20 - Alcohol dependence, uncomplicated Qualifiers: Substance use status: with intoxication Complication of substance- induced condition: uncomplicated Qualified Code(s): F10.220 - Alcohol dependence with intoxication, uncomplicated (2) Desire for detoxification: Status: Acute (3) Tobacco abuse: Status: Acute Code(s): Z72.0 - Tobacco use Medications at Discharge Home Medications trazodone 150 mg PO QHS 01/15/21 Hospital Course Operations None Procedures None Summary of Care Provided Minutes Spent on Discharge: 24 Hospital Course: This is a 55-year-old male presents for acute alcohol withdrawal. Patient was started on phenobarbital taper and his course was uncomplicated. Today patient is feeling much better. Plan is for the patient to follow-up with the [address] [place] [id number] program today. He will be picked up around 11 AM. Physical Exam Const alert and oriented x3 Constitutional Narrative: up in chair. Weight / BMI Weight Weight: 56.4 kg Body Mass Index (BMI) 20.0 ABG / Lab / Microbiology Data Result Diagrams: 01/15/21 05:02 01/17/21 05:26 Microbiology: Microbiology 01/15/21 00:50 Nasal Secretion SARS-CoV-2 Antigen (Rapid) - Final D/C Instructions Discharge Diet: No restrictions Please Follow Up With: [facility] When: today Meaningful Use Info Meaningful Use Diagnoses (Choose all that apply): None applicable Discharge Plan Admission Admit Date/Time: 01/15/21 01:02 Primary Reason for Your Visit: alcohol withdrawal Attending Provider: Zay Barahona Primary Care Provider: Care Physician,Camryn Primary Discharge Orders/Prescriptions Prescriptions: Continued trazodone 100 mg tablet 150 mg PO QHS RF: 0 Referrals / Follow Up: Care Physician,No Primary [Primary Care Provider] - Charges/Coding Visit Charges Inpatient E&M: 30068 Disch Hosp
[2021-01-18] MEDS: Thiamine Hydrochloride 100 MG Tablet PO (09:52)
[2021-01-18] MEDS: Folic Acid 1 MG Tablet PO (09:52)
--- NOTE | 2021-01-18 09:54 | ADDICTION ---
This worker met w/Pt to discuss d/c plan for today, expectations of residential facility, and plans for transport.
[2021-01-18 09:56] VITALS: BP 138/83; PULSE 79; RESP 16; TEMP 36.5; O2SAT 97
[2021-01-18 11:15] VITALS: BP 138/83; PULSE 79; RESP 18; TEMP 36.5; O2SAT 97
== END 2021-01-18 11:30 | disposition other institution (70) | DRG 775 ==
LOC: ED 01-15 01:00 → MS3 01-15 07:08
PROVIDERS: Internal Medicine; Nurse Practitioner Family; Admitting Provider Family Medicine; Emergency Provider Emergency Medicine
DX: F10.220 Alcohol dependence with intoxication, uncomplicated (principal); F10.239 Alcohol dependence with withdrawal, unspecified; Z20.822 Contact with and (suspected) exposure to COVID-19; F17.210 Nicotine dependence, cigarettes, uncomplicated; Y90.8 Blood alcohol level of 240 mg/100 ml or more
CPT/HCPCS: 36415; 80048; 80307; 82077; 83735; 84100; 85025; 87426; 96372; 99218; 99283; 99406; A4216; G0378